=== PATIENT | male | born 1965 | race Caucasian/White ===

== ENCOUNTER 2017-02-05 22:27 | Emergency (ER) | payer OTHER ==
[~2017-02-05] VITALS: Ht 172.7 cm; Wt 66.0 kg
[~2017-02-05 22:27] MED LIST: CARB200T16
[2017-02-05 22:30] VITALS: BP 156/83; PULSE 97; RESP 16; TEMP 97.7; O2SAT 98
== END 2017-02-05 23:59 | disposition left against medical advice (07) ==
LOC: NED 23:59
DX: R42 Dizziness and giddiness (principal)
CPT/HCPCS: 99281

== ENCOUNTER 2017-03-02 10:00 | Emergency (ER) | payer OTHER ==
[~2017-03-02] VITALS: Ht 175.3 cm; Wt 63.5 kg
[2017-03-02 10:05] VITALS: BP 126/80; PULSE 74; RESP 16; TEMP 98.1; O2SAT 97
--- NOTE | 2017-03-02 10:16 | PD ---
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 He says that the hit took him to his knees. He was confused following the accident but denies any loss of consciousness, vomiting or difficulty walking or talking following the incident. Patient was seen at an urgent care and referred here for a CT scan. [facility] Past Medical History Diminished Hearing: No Seizures: Yes Social History Alcohol Use: Yes (1 BEER PER MONTH/LAST INTAKE 3 WKS AGO) Tobacco Use: Yes (1 PPD/STARTED AGE 18) Substance Use: Yes (COCAINE/LAST USED 1 MONTH AGO) Allergies-Medications (Allergen,Severity, Reaction): Coded Allergies: No Known Allergies (Verified , 03/02/17) Reported Meds & Prescriptions Reported Meds & Active Scripts Active Reported Tegretol (Carbamazepine) 200 Mg Tab Review of Systems Except as stated in HPI: all other systems reviewed are Neg Physical Exam Narrative GENERAL:Well appearing, no acute distress SKIN: 1 cm laceration in the mid forehead over a hematoma HEAD : hematoma in the mid forehead EYES: Pupils equal and round. No injection or drainage. ENT: Moist mucous membranes NECK: Trachea midline. No cervical spine tenderness. CARDIOVASCULAR: Regular rate and rhythm. No murmur appreciated. RESPIRATORY: Clear to auscultation. Breath sounds equal bilaterally. GASTROINTESTINAL: Abdomen soft, non-tender, nondistended. MUSCULOSKELETAL: No obvious deformities. NEUROLOGICAL: Awake and alert. No obvious cranial nerve deficits. Moving all extremities. No dysarthria or aphasia. PSYCHIATRIC: Appropriate mood and affect; insight and judgment normal. Data Data Last Documented VS Vital Signs Date Time Temp Pulse Resp B/P Pulse Ox O2 Delivery O2 Flow Rate FiO2 03/02/17 10:05 98.1 74 16 126/[address] Brain W/O Iv Contrast(Rout) (03/02/17 ) MDM Medical Decision Making Medical Screen Exam Complete: Yes Emergency Medical Condition: Yes Interpretation(s) afebrile, no tachycardia, normotensive CT head: No intracranial hemorrhage Differential Diagnosis Epidural hematoma, subdural hematoma, subarachnoid hemorrhage, contusion Narrative Course This is a 50-year-old male who presents to the emergency department having been hit in the head with a metal type at a construction site. He has a hematoma over the frontal bone. CT was negative for any cranial hemorrhage. Patient will be discharged home. Diagnosis Primary Impression: Hematoma of frontal scalp Qualified Code: S00.03XA - Hematoma of frontal scalp, initial encounter Patient Instructions: General Instructions Additional Instructions: If you develop severe worsening headache, persistent vomiting, numbness, weakness, difficulty walking or difficulty talking return to the emergency department immediately. Sometimes in the emergency department we did not identify the cause of headaches. Med/Other Pt SpecificInfo: No Change to Meds Disposition: 01 DISCHARGE HOME Condition: Stable Mya Wilson MD Mar 02, 2017 10:15
--- NOTE | 2017-03-02 11:22 | RADHPO ---
EXAM DATE/TIME: 03/02/2017 11:02 [facility] COMPARISON: No previous studies available for comparison. INDICATIONS : Hit in the head with a steel pole at work. No LOC. laceration to forehead. RADIATION DOSE: 67.26 CTDIvol (mGy) MEDICAL HISTORY : Seizures. SURGICAL HISTORY : None. ENCOUNTER: Initial ACUITY: 1 day PAIN SCALE: 7/10 LOCATION: cranial TECHNIQUE: Multiple contiguous axial images were obtained of the head. Using automated exposure control and adj ustment of the mA and/or kV according to patient size, radiation dose was kept as low as reasonably a chievable to obtain optimal diagnostic quality images. FINDINGS: CEREBRUM: The ventricles are normal for age. No evidence of midline shift, mass lesion, hemorrhage or acute in farction. No extra-axial fluid collections are seen. POSTERIOR FOSSA: The cerebellum and brainstem are intact. The 4th ventricle is midline. The cerebellopontine angle i s unremarkable. EXTRACRANIAL: The visualized portion of the orbits is intact. SKULL: The calvaria is intact. No evidence of skull fracture. There is mild soft tissue swelling over the f rontal bone. CONCLUSION: Soft tissue swelling over the frontal bone with no acute hemorrhage or fracture. Ther e is mild motion artifact. Ritchie Elliott MD on March 02, 2017 at 11:19 Board Certified Radiologist. This report was verified electronically.
== END 2017-03-02 12:12 | disposition home or self-care (01) ==
LOC: PHEFT 10:00
DX: S00.03XA Contusion of scalp, initial encounter (principal); F17.210 Nicotine dependence, cigarettes, uncomplicated; W20.8XXA Other cause of strike by thrown, projected or falling object, initial encounter; Y93.H3 Activity, building and construction; Y92.9 Unspecified place or not applicable; Y99.0 Civilian activity done for income or pay
CPT/HCPCS: 70450